=== PATIENT | female | born 1990 | race Hispanic/Latino ===

== ENCOUNTER 2017-03-14 18:29 | Emergency (ER) | payer MEDICAID ==
[2017-03-14 18:42] VITALS: BP 145/89; PULSE 115; RESP 18; TEMP 98.6; O2SAT 98
--- NOTE | 2017-03-14 18:52 | ED PDOC ---
HPI: CCC, URI, Sore Throat Chief Complaint (Nursing): ENT Problem Chief Complaint (Provider): ENT Problem History Per: Patient History/Exam Limitations: no limitations Have you had recent travel within the past 21 days to any of the following countries: [place], [place], [place] or [place]?: No Onset/Duration Of Symptoms: Other (x 1 and 1/2 week) Current Symptoms Are (Timing): Still Present Additional Complaint(s): Iliana is a 26 year old female who presents to the Emergency Department complaining of left ear pain that started suddenly after coughing. Patient states she had nasal congestion and cough for 1 and 1/2 weeks. Denies fever, chills and vomiting. PMD: No Family Provider Past Medical History Reviewed: Historical Data, Nursing Documentation, Vital Signs Vital Signs: Last Vital Signs Temp 98.6 F 03/14/17 18:38 Pulse 115 H 03/14/17 18:38 Resp 18 03/14/17 18:38 BP 145/89 03/14/17 18:38 Pulse Ox 98 03/14/17 19:03 - Surgical History Surgical History: No Surg Hx - Family History Family History: States: No Known Family Hx - Social History Current smoker - smoking cessation education provided: No Alcohol: None Drugs: Denies - Home Medications Home Medications: Ambulatory Orders Medication Instructions Recorded Albuterol 0.083% [Albuterol 0.083% 2.5 mg IH Q8 PRN #100 neb 03/14/17 Inhal Ginny (2.5 mg/3 ml) UD] Amoxicillin 500 mg PO TID #21 tablet 03/14/17 Naproxen 1 tab PO Q12 PRN #14 tab 03/14/17 predniSONE [Prednisone] 2 tab PO DAILY #10 tab 03/14/17 - Allergies Allergies/Adverse Reactions: Allergies Allergy/AdvReac Type Severity Reaction Status Date / Time No Known Allergies Allergy Verified 03/14/17 18:41 Review of Systems ROS Statement: Except As Marked, All Systems Reviewed And Found Negative Constitutional: Negative for: Fever, Chills ENT: Positive for: Ear Pain (Left ), Nose Congestion Respiratory: Positive for: Cough Gastrointestinal: Negative for: Vomiting Physical Exam - Reviewed Nursing Documentation Reviewed: Yes Vital Signs Reviewed: Yes - Physical Exam Appears: Positive for: Well, Non-toxic Head Exam: Positive for: ATRAUMATIC, NORMAL INSPECTION, NORMOCEPHALIC Skin: Positive for: Normal Color Eye Exam: Positive for: Normal appearance ENT: Positive for: TM Is/Are (Left erythematous TM), Nasal Congestion (Mild) Neck: Positive for: Normal Respiratory: Positive for: Wheezing (MILD), Other (Throat within Normal) Neurologic/Psych: Positive for: Alert, Oriented - ECG O2 Sat by Pulse Oximetry: 98 (RA) Pulse Ox Interpretation: Normal Medical Decision Making Medical Decision Making: Time: 18:51 Upon provider evaluation patient is medically stable, and requires no further treatment in the ED at this time. Patient will be discharged with Rx for Albuterol, Amoxicillin, Naproxen, and Prednisone. Counseling was provided and all questions were answered regarding diagnosis and need for follow up with PCP. There is agreement to discharge plan. Return if symptoms persist or worsen. Scribe Attestation: Documented by Pio Diane, acting as a scribe for Sunday Gonzales PA-C Provider Scribe Attestation: All medical record entries made by the Scribe were at my direction and personally dictated by me. I have reviewed the chart and agree that the record accurately reflects my personal performance of the history, physical exam, medical decision making, and the department course for this patient. I have also personally directed, reviewed, and agree with the discharge instructions and disposition. Disposition - Clinical Impression Clinical Impression: Acute ear infection, Reactive airway disease - Patient ED Disposition Is Patient to be Admitted: No - Disposition Referrals: [facility] [Outside] Disposition: Routine/Home Disposition Time: 18:51 Condition: FAIR Prescriptions: Albuterol 0.083% [Albuterol 0.083% Inhal Ginny (2.5 mg/3 ml) UD] 2.5 mg IH Q8 PRN #100 neb PRN Reason: Cough Amoxicillin 500 mg PO TID #21 tablet Naproxen 1 tab PO Q12 PRN #14 tab PRN Reason: Pain, Moderate (4-7) predniSONE [Prednisone] 2 tab PO DAILY #10 tab Instructions: Otitis Media (ED), Reactive Airways Disease (DC) Forms: [facility] (Armenian), [facility] ED School/Work Excuse
== END 2017-03-14 19:00 | disposition short-term general hospital (02) ==
LOC: H.ER 18:29
DX: J45.909 Unspecified asthma, uncomplicated (principal); H66.92 Otitis media, unspecified, left ear

== ENCOUNTER 2017-09-28 19:21 | Emergency (ER) | payer MEDICAID ==
[2017-09-28] MEDS ORDERED: Lactated Ringer's 1,000 ML IV STA ×2 (20:06→20:07)
--- NOTE | 2017-09-28 20:42 | ED PDOC ---
HPI:Nausea, Vomiting, Diarrhea Time Seen by Provider: 09/28/17 19:51 Chief Complaint (Nursing): Female Genitourinary Chief Complaint (Provider): VOmiting History Per: Patient History/Exam Limitations: no limitations Onset/Duration Of Symptoms: Days Current Symptoms Are (Timing): Still Present Have you had recent travel within the past 21 days to any of the following countries: [place], [place], [place] or [place]?: No Associated Symptoms: Nausea, Vomiting. denies: Fever, Chills, Diarrhea, Back Pain, Urinary Symptoms Additional History Per: Patient Additional Complaint(s): 27yo female, with EGA of 5 weeks, presents to ED with persistent nausea and vomiting for the past 1 week. Patient states she has a history of hyperemesis gravidarum and severe iron deficiency, making her high risk. She reports over the past 24 hours, she has vomited 10-20 times. She also reports decreased urine output. Patient denies any diarrhea, vaginal bleeding, weakness , fever or chills. No other complaints. Abnormal Vaginal Bleeding: No : 3 Para: 1 Past Medical History Reviewed: Historical Data, Nursing Documentation, Vital Signs Vital Signs: Last Vital Signs Temp 97.7 F 09/28/17 19:37 Pulse 105 H 09/28/17 19:37 Resp 16 09/28/17 19:37 BP 130/83 09/28/17 19:37 Pulse Ox 99 09/28/17 19:37 - Medical History PMH: No Chronic Diseases - Surgical History Surgical History: No Surg Hx - Family History Family History: States: No Known Family Hx - Home Medications Home Medications: Ambulatory Orders Medication Instructions Recorded Albuterol 0.083% [Albuterol 0.083% 2.5 mg IH Q8 PRN #100 neb 03/14/17 Inhal Ginny (2.5 mg/3 ml) UD] Amoxicillin 500 mg PO TID #21 tablet 03/14/17 Naproxen 1 tab PO Q12 PRN #14 tab 03/14/17 predniSONE [Prednisone] 2 tab PO DAILY #10 tab 03/14/17 Doxylamine/Pyridoxine HCl (B6) 1 - 2 each PO HS #16 tablet. 09/28/17 [Sol Wagner 10-10 mg Tablet] - Allergies Allergies/Adverse Reactions: Allergies Allergy/AdvReac Type Severity Reaction Status Date / Time No Known Allergies Allergy Verified 03/14/17 18:41 Review of Systems ROS Statement: Except As Marked, All Systems Reviewed And Found Negative Constitutional: Negative for: Fever, Chills, Weakness Gastrointestinal: Positive for: Nausea, Vomiting. Negative for: Abdominal Pain , Diarrhea Physical Exam - Reviewed Nursing Documentation Reviewed: Yes Vital Signs Reviewed: Yes - Physical Exam Appears: Positive for: Non-toxic, Uncomfortable Head Exam: Positive for: ATRAUMATIC, NORMAL INSPECTION, NORMOCEPHALIC Skin: Positive for: Normal Color, Warm Eye Exam: Positive for: Normal appearance ENT: Positive for: Other (tacky mucus membranes) Neck: Positive for: Supple Cardiovascular/Chest: Positive for: Regular Rate, Rhythm, Tachycardia Respiratory: Positive for: Normal Breath Sounds Gastrointestinal/Abdominal: Positive for: Normal Exam, Soft. Negative for: Tenderness, Mass, Guarding, Rebound Back: Positive for: Normal Inspection. Negative for: L CVA Tenderness, R CVA Tenderness Extremity: Positive for: Normal ROM. Negative for: Pedal Edema, Deformity, Swelling Neurologic/Psych: Positive for: Alert, Oriented. Negative for: Motor/Sensory Deficits - Laboratory Results Result Diagrams: 09/28/17 21:00 09/28/17 21:00 - ECG O2 Sat by Pulse Oximetry: 99 (RA) Pulse Ox Interpretation: Normal Medical Decision Making Medical Decision Making: Impression: 27yo female wt hyperemesis gravidarum, clinical dehydration Plan: -- Labs -- Urinalysis -- US OB Transvaginal -- IV Lactated ringer's -- Reglan 10 mg IV Progress: 2233 US OB Transvaginal FINDINGS: Uterus: Measures 8.2 x 4.5 x 4.9 cm. Single intrauterine gestation identified. pole and yolk sac are seen. Estimated gestational age is 6 weeks, 2 days. Estimated delivery date is 05/22/2018. Note that the anatomy, amniotic fluid volume, and placental position cannot be evaluated at this early gestational age. heart motion visualized, at 129 beats per minute. Cervix appears closed. Right ovary: Within normal limits in appearance. Measures 2.1 x 1.0 x 1.3 cm. Flow seen in the right ovary on Doppler imaging, with no evidence of torsion. Left ovary: Contains a small 1.3 x 1.0 cm complex cystic lesion. This lesion has a thick wall and a crenulated appearance. It most likely represents a corpus luteal cyst, given its appearance. Otherwise unremarkable in appearance. Measures 3.2 x 2.8 x 2.3 cm. Flow seen in the left ovary on color and Doppler imaging, with no evidence of torsion. Free fluid: None seen. IMPRESSION: 6 week, 2 day intrauterine with heart motion. No acute abnormality identified. 2300 Labs reviewed with no acute findings. Patient reports feeling much better. Stable for discharge home. Patient instructed to stay well hydrated and to follow up with PMD in 2-3 days. Return precautions given. Scribe attestation: Documented by Michaelle Chris acting as a scribe for Geronimo Escalanet MD. Provider attestation: All medical record entries made by the Scribe were at my direction and personally dictated by me. I have reviewed the chart and agree that the record accurately reflects my personal performance of the history, physical exam, medical decision making, and the department course for this patient. I have also personally directed, reviewed, and agree with the discharge instructions and disposition. Disposition - Clinical Impression Clinical Impression: Hyperemesis gravidarum - Disposition [facility] Disposition: Routine/Home Disposition Time: 23:00 Condition: STABLE Prescriptions: Doxylamine/Pyridoxine HCl (B6) [Sol Wagner 10-10 mg Tablet] 1 - 2 each PO HS # 16 tablet. Instructions: Hyperemesis Gravidarum Forms: [employer] (Mongolian)
[2017-09-28 21:18] LABS: BASO % 0.3 % (0.0-2.0); EOS # 0.1 K/uL (0.0-0.7); EOS % 0.8 % (0.0-4.0); HEMOGLOBIN 13.7 g/dL (12.0-16.0); LYMPH # 1.9 K/uL (1.0-4.3); LYMPH % 27.7 % (20.0-40.0); MEAN CELL VOLUME 91.7 fl (81.0-99.0); MEAN CORPUSCULAR HEMOGLOBIN 30.8 pg (27.0-31.0); MEAN CORPUSCULAR HGB CONC 33.6 g/dL (33.0-37.0); MEAN PLATELET VOLUME 8.6 fl (7.2-11.7); MONO # 0.8 K/uL (0.0-0.8); MONO % 11.9 % (0.0-10.0); NEUT # 4.1 K/uL (1.8-7.0); NEUT % 59.3 % (50.0-75.0); NRBC % 0.3 % (0.0-0.0); RBC 4.46 Mil/uL (3.80-5.20); RED CELL DISTRIBUTION WIDTH 13.1 % (11.5-14.5); WHITE BLOOD COUNT 6.9 K/uL (4.8-10.8)
[2017-09-28 21:21] LABS: ALB/GLOB RATIO 0.8 (1.0-2.1); ALBUMIN 4.2 g/dL (3.5-5.0); ALT/SGPT 32 U/L (9-52); AST/SGOT 33 U/L (14-36); BLOOD UREA NITROGEN 9 mg/dl (7-17); CALCIUM 9.4 mg/dL (8.4-10.2); GFR AFRICAN-AMERICAN > 60; GFR NON-AFRICAN AMERICAN > 60
[2017-09-28 21:55] LABS: SQUAMOUS EPITHIAL 14 /hpf (0-5); URINE BILIRUBIN NEGATIVE (NEGATIVE); URINE BLOOD NEGATIVE (NEGATIVE); URINE CLARITY CLOUDY (Clear); URINE COLOR AMBER (YELLOW); URINE GLUCOSE (UA) NEG (Normal); URINE LEUKOCYTE ESTERASE MOD Leu/uL (Negative); URINE PROTEIN 30 mg/dL (NEGATIVE)
--- NOTE | 2017-09-28 22:34 | US ---
EXAM: US , Transvaginal EXAM DATE/TIME: 09/28/2017 8:19 PM CLINICAL HISTORY: 27 years old, female; Signs and symptoms; Lmp or gestational age (in weeks): 08/21/17; Antepartum complications; Other: Vomitting; ; Additional info: Abd pain in preg TECHNIQUE: Real-time transvaginal obstetrical ultrasound of the maternal pelvis and a first trimester with image documentation. Transvaginal imaging was used for better evaluation of the fetus and adnexa. COMPARISON: No relevant prior studies available. FINDINGS: Uterus: Measures 8.2 x 4.5 x 4.9 cm. Single intrauterine gestation identified. pole and yolk sac are seen. Estimated gestational age is 6 weeks, 2 days. Estimated delivery date is 05/22/2018. Note that the anatomy, amniotic fluid volume, and placental position cannot be evaluated at this early gestational age. heart motion visualized, at 129 beats per minute. Cervix appears closed. Right ovary: Within normal limits in appearance. Measures 2.1 x 1.0 x 1.3 cm. Flow seen in the right ovary on Doppler imaging, with no evidence of torsion. Left ovary: Contains a small 1.3 x 1.0 cm complex cystic lesion. This lesion has a thick wall and a crenulated appearance. It most likely represents a corpus luteal cyst, given its appearance. Otherwise unremarkable in appearance. Measures 3.2 x 2.8 x 2.3 cm. Flow seen in the left ovary on color and Doppler imaging, with no evidence of torsion. Free fluid: None seen. IMPRESSION: 6 week, 2 day intrauterine with heart motion. No acute abnormality identified. See above for remaining findings.
[2017-09-28 23:40] VITALS: BP 107/62; PULSE 94; RESP 19; TEMP 98.7; O2SAT 98
== END 2017-09-29 00:10 | disposition home or self-care (01) ==
LOC: H.ER 19:21
DX: O21.9 Vomiting of pregnancy, unspecified (principal); O26.891 Other specified pregnancy related conditions, first trimester; O34.80 Maternal care for other abnormalities of pelvic organs, unspecified trimester; Z3A.01 Less than 8 weeks gestation of pregnancy
CPT/HCPCS: 76817; 80053; 81003; 81025; 82948; 84702; 85025; 96360; 96361; 99283; J2765; J7120

== ENCOUNTER 2017-11-26 18:45 | Emergency (ER) | payer MEDICAID ==
[2017-11-26 18:51] VITALS: RESP 16; BMI 33.0
--- NOTE | 2017-11-26 20:14 | ED PDOC ---
HPI: Female Pain Time Seen by Provider: 11/26/17 19:21 Chief Complaint (Nursing): Female Genitourinary Chief Complaint (Provider): Vaginal spotting History Per: Patient History/Exam Limitations: no limitations Onset/Duration Of Symptoms: Days (1) Current Symptoms Are (Timing): Still Present Additional History Per: Patient Additional Complaint(s): 27yo female, and currently 15 weeks , comes to ER with complaints of vaginal spotting x 1 day. She also report a minimal abdominal cramping. She denies any vomiting, diarrhea, fever, chills, and offers no additional medical complaints. Abnormal Vaginal Bleeding: Yes : 3 Para: 1 Miscarriage: 1 Past Medical History Reviewed: Historical Data, Nursing Documentation, Vital Signs Vital Signs: Last Vital Signs Temp 97.6 F 11/26/17 18:50 Pulse 116 H 11/26/17 18:50 Resp 16 11/26/17 18:50 BP 126/74 11/26/17 18:50 Pulse Ox 99 11/26/17 18:50 - Medical History PMH: No Chronic Diseases - Surgical History Surgical History: No Surg Hx - Family History Family History: States: No Known Family Hx - Home Medications Home Medications: Ambulatory Orders Medication Instructions Recorded Albuterol 0.083% [Albuterol 0.083% 2.5 mg IH Q8 PRN #100 neb 03/14/17 Inhal Ginny (2.5 mg/3 ml) UD] Amoxicillin 500 mg PO TID #21 tablet 03/14/17 Naproxen 1 tab PO Q12 PRN #14 tab 03/14/17 predniSONE [Prednisone] 2 tab PO DAILY #10 tab 03/14/17 Doxylamine/Pyridoxine HCl (B6) 1 - 2 each PO HS #16 tablet. 09/28/17 [Sol Wagner 10-10 mg Tablet] Miconazole Nitrate [Monistat 3] 1 each VG DAILY #1 kit 11/26/17 - Allergies Allergies/Adverse Reactions: Allergies Allergy/AdvReac Type Severity Reaction Status Date / Time No Known Allergies Allergy Verified 11/26/17 18:52 Review of Systems ROS Statement: Except As Marked, All Systems Reviewed And Found Negative Constitutional: Negative for: Fever, Chills Cardiovascular: Negative for: Chest Pain Respiratory: Negative for: Shortness of Breath Gastrointestinal: Positive for: Abdominal Pain (cramping). Negative for: Nausea , Vomiting, Diarrhea Genitourinary Female: Positive for: Vaginal Bleeding Physical Exam - Reviewed Nursing Documentation Reviewed: Yes Vital Signs Reviewed: Yes - Physical Exam Appears: Positive for: Non-toxic, No Acute Distress Head Exam: Positive for: ATRAUMATIC, NORMAL INSPECTION, NORMOCEPHALIC Skin: Positive for: Normal Color Eye Exam: Positive for: Normal appearance Neck: Positive for: Supple Cardiovascular/Chest: Positive for: Regular Rate, Rhythm. Negative for: Murmur Respiratory: Positive for: Normal Breath Sounds. Negative for: Respiratory Distress Gastrointestinal/Abdominal: Positive for: Soft, Tenderness (minimal suprapuic tenderness), Other (gravid abdomen). Negative for: Guarding, Rebound Back: Positive for: Normal Inspection Extremity: Positive for: Normal ROM. Negative for: Pedal Edema Neurologic/Psych: Positive for: Alert, Oriented. Negative for: Motor/Sensory Deficits - Laboratory Results Result Diagrams: 11/26/17 20:11 11/26/17 20:11 - ECG O2 Sat by Pulse Oximetry: 99 (RA) Pulse Ox Interpretation: Normal Medical Decision Making Medical Decision Making: Impression: Threatened in 2nd trimester Plan: -- Labs -- UA -- US OB Accession No. : [id number] Patient Name / ID : ELISA MUNOZ / [id number] Exam Date : 11/26/2017 20:11:09 ( Approved ) Study Comment : Sex / Age : F / 27Y Creator : Jose Fraire MD Dictator : Jose Fraire MD Ethics Manager : Appellate Law Clerk : Jose Fraire MD Approver2 : Report Date : 11/27/2017 10:28:48 My Comment : Date of service: 11/26/2017 PROCEDURE: Second trimester ultrasound HISTORY: Vag spotting COMPARISON: 09/28/2017. TECHNIQUE: Standard protocol for this study/examination. FINDINGS: Reach presentation. Anterior Placenta. No evidence of abruption or previa Gestational age derived from LMP 13 weeks 6 days. JAMILA 05/28/2018. Gestational age derived from the following biometric parameters 14 weeks 5 days. JAMILA 05/22/2018 Biparietal diameter 2.65 cm Head circumference 10.11 cm Abdominal circumference 7.51 cm Femur length 1.88 cm Estimated weight 106.5 g Calculated cardiac rate 162 beats per min. Closed cervix measuring 5.61 cm Adnexa: Not visible IMPRESSION: Fourteen weeks 5 days live intrauterine gestation. Gestational concordance documented. Adequate interval progression compared to the prior study. Scribe Attestation: Documented by Michaelle Chris, acting as a scribe for Hansa Parsons MD. Provider Scribe Attestation: All medical record entries made by the Scribe were at my direction and personally dictated by me. I have reviewed the chart and agree that the record accurately reflects my personal performance of the history, physical exam, medical decision making, and the department course for this patient. I have also personally directed, reviewed, and agree with the discharge instructions and disposition. Disposition - Clinical Impression Clinical Impression: Threatened in second trimester, Yeast vaginitis - Disposition Disposition: Routine/Home Disposition Time: 21:41 Condition: STABLE Additional Instructions: FOLLOW-UP WITH OB WITHIN 2 DAYS FOR REEVALUATION. Prescriptions: Miconazole Nitrate [Monistat 3] 1 each VG DAILY #1 kit Instructions: Vulvovaginal Yeast Infection, Threatened Miscarriage Forms: [facility] (Honduran)
[2017-11-26 20:17] LABS: BASO % 0.4 % (0.0-2.0); EOS # 0.1 K/uL (0.0-0.7); HEMOGLOBIN 12.5 g/dL (12.0-16.0); LYMPH # 2.1 K/uL (1.0-4.3); LYMPH % 33.6 % (20.0-40.0); MEAN CELL VOLUME 91.3 fl (81.0-99.0); MEAN CORPUSCULAR HEMOGLOBIN 31.6 pg (27.0-31.0); MEAN CORPUSCULAR HGB CONC 34.6 g/dL (33.0-37.0); MEAN PLATELET VOLUME 8.3 fl (7.2-11.7); MONO # 0.6 K/uL (0.0-0.8); MONO % 10.1 % (0.0-10.0); NEUT # 3.4 K/uL (1.8-7.0); NEUT % 53.9 % (50.0-75.0); RBC 3.94 Mil/uL (3.80-5.20); WHITE BLOOD COUNT 6.3 K/uL (4.8-10.8)
[2017-11-26 20:32] LABS: ALB/GLOB RATIO 0.8 (1.0-2.1); ALBUMIN 3.6 g/dL (3.5-5.0); ALT/SGPT 17 U/L (9-52); AST/SGOT 20 U/L (14-36); BLOOD UREA NITROGEN 8 mg/dl (7-17); CALCIUM 9.3 mg/dL (8.4-10.2); GFR AFRICAN-AMERICAN > 60; GFR NON-AFRICAN AMERICAN > 60
[2017-11-26 20:54] LABS: SQUAMOUS EPITHIAL 4 /hpf (0-5); URINE BACTERIA RARE (<OCC); URINE BILIRUBIN NEGATIVE (NEGATIVE); URINE BLOOD NEGATIVE (NEGATIVE); URINE CLARITY SLIGHTY-CLOUDY (Clear); URINE COLOR YELLOW (YELLOW); URINE GLUCOSE (UA) NEG (Normal); URINE LEUKOCYTE ESTERASE LARGE Leu/uL (Negative); URINE PROTEIN NEGATIVE (NEGATIVE); URINE UROBILINOGEN 0.2-1.0 mg/dL (0.2-1.0)
[2017-11-26 21:51] VITALS: BP 124/74; PULSE 93; TEMP 98
--- NOTE | 2017-11-27 10:30 | US ---
Date of service: 11/26/2017 PROCEDURE: Second trimester ultrasound HISTORY: Vag spotting COMPARISON: 09/28/2017. TECHNIQUE: Standard protocol for this study/examination. FINDINGS: Reach presentation. Anterior Placenta. No evidence of abruption or previa Gestational age derived from LMP 13 weeks 6 days. JAMILA 05/28/2018. Gestational age derived from the following biometric parameters 14 weeks 5 days. JAMILA 05/22/2018 Biparietal diameter 2.65 cm Head circumference 10.11 cm Abdominal circumference 7.51 cm Femur length 1.88 cm Estimated weight 106.5 g Calculated cardiac rate 162 beats per min. Closed cervix measuring 5.61 cm Adnexa: Not visible IMPRESSION: Fourteen weeks 5 days live intrauterine gestation. Gestational concordance documented. Adequate interval progression compared to the prior study. Concordant results (preliminary interpretation) provided by [facility]. Procedure Completed: 20:18 Preliminary ([facility]) Report: Dictated and Authenticated: 21:15. Final Interpretation: 10:23. November 27, 2017.
[2017-11-29 12:43] VITALS: O2SAT 99
== END 2017-11-26 21:50 | disposition home or self-care (01) ==
LOC: H.ER 18:45
DX: O20.0 Threatened abortion (principal); Z3A.15 15 weeks gestation of pregnancy; O98.812 Other maternal infectious and parasitic diseases complicating pregnancy, second trimester

== ENCOUNTER 2018-01-06 18:48 | Emergency (ER) | payer MEDICAID ==
[2018-01-07 01:18] VITALS: BP 119/77; PULSE 98; RESP 18; TEMP 98.4; O2SAT 99
== END 2018-01-06 20:50 | disposition home or self-care (01) ==
LOC: H.EROB2 18:48 → H.L&D 19:07 → H.EROB2 20:50
DX: O26.852 Spotting complicating pregnancy, second trimester (principal); O43.92 Unspecified placental disorder, second trimester; Z3A.20 20 weeks gestation of pregnancy

== ENCOUNTER 2018-01-06 20:59 | Emergency (ER) | payer MEDICAID ==
[2018-01-06 21:00] VITALS: BMI 33.0
[2018-01-06 21:08] VITALS: BP 115/72; PULSE 104; RESP 20; TEMP 98.6; O2SAT 98
--- NOTE | 2018-01-06 21:48 | ED PDOC ---
Lower Extremity Pain/Injury Time Seen by Provider: 01/06/18 21:41 Chief Complaint (Nursing): Lower Extremity Problem/Injury Chief Complaint (Provider): left 5th digit injury History Per: Patient History/Exam Limitations: no limitations Onset/Duration Of Symptoms: Hrs (prior to arrival) Current Symptoms Are (Timing): Still Present Additional Complaint(s): Iliana Purdy is a 27 year old female, with no significant past medical history, who presents to the emergency department stating she tripped and sustained an injury to left 5th digit while chasing her toddler son prior to arrival. Patient has been ambulating with mild pain. Patient is but reports only twisting her toe, she did not fall and denies any abdominal pain. No other injuries or medical complaints. PMD: Kiya Davis Past Medical History Reviewed: Historical Data, Nursing Documentation, Vital Signs Vital Signs: Last Vital Signs Temp 98.6 F 01/06/18 21:05 Pulse 104 H 01/06/18 21:05 Resp 20 01/06/18 21:05 BP 115/72 01/06/18 21:05 Pulse Ox 98 01/06/18 21:05 - Medical History PMH: No Chronic Diseases - Surgical History Surgical History: No Surg Hx - Family History Family History: States: Unknown Family Hx - Home Medications Home Medications: Ambulatory Orders Medication Instructions Recorded Albuterol 0.083% [Albuterol 0.083% 2.5 mg IH Q8 PRN #100 neb 03/14/17 Inhal Ginny (2.5 mg/3 ml) UD] Amoxicillin 500 mg PO TID #21 tablet 03/14/17 Naproxen 1 tab PO Q12 PRN #14 tab 03/14/17 predniSONE [Prednisone] 2 tab PO DAILY #10 tab 03/14/17 Doxylamine/Pyridoxine HCl (B6) 1 - 2 each PO HS #16 tablet. 09/28/17 [Sol Wagner 10-10 mg Tablet] Miconazole Nitrate [Monistat 3] 1 each VG DAILY #1 kit 11/26/17 - Allergies Allergies/Adverse Reactions: Allergies Allergy/AdvReac Type Severity Reaction Status Date / Time No Known Allergies Allergy Verified 01/06/18 19:38 Review of Systems ROS Statement: Except As Marked, All Systems Reviewed And Found Negative Gastrointestinal: Negative for: Abdominal Pain Musculoskeletal: Positive for: Foot Pain (left 5th digit) Physical Exam - Reviewed Nursing Documentation Reviewed: Yes Vital Signs Reviewed: Yes - Physical Exam Appears: Positive for: No Acute Distress Head Exam: Positive for: ATRAUMATIC, NORMOCEPHALIC Skin: Positive for: Normal Color, Warm, Dry Eye Exam: Positive for: Normal appearance Neck: Positive for: Painless ROM Extremity: Positive for: Normal ROM (lower extremities), Tenderness (swelling, tenderness and ecchymosis to 5th digit.), Swelling. Negative for: Deformity Neurologic/Psych: Positive for: Alert, Oriented, Gait (steady) - ECG O2 Sat by Pulse Oximetry: 98 (RA) Pulse Ox Interpretation: Normal Medical Decision Making Medical Decision Making: Time: 21:41 Initial impression: Toe injury Initial Plan: --Tylenol 325 mg tab 650 mg PO --Foot left 5th digit (Toe) [RAD] Foot xray: nondisplaced fx. distal aspect of prox phalanx; as read by me. Treatment: Toes ryanne taped together, pt. placed in cast shoe, ambulating with little difficulty. advised rest, ice, elevate and tylenol as needed for pain. podiatry follow up given. Scribe Attestation: Documented by George Keenan, acting as a scribe for Ligia Alvarez PA-C Provider Scribe Attestation: All medical record entries made by the Scribe were at my direction and personally dictated by me. I have reviewed the chart and agree that the record accurately reflects my personal performance of the history, physical exam, medical decision making, and the department course for this patient. I have also personally directed, reviewed, and agree with the discharge instructions and disposition. Disposition - Clinical Impression Clinical Impression: Toe fracture, left - Patient ED Disposition Is Patient to be Admitted: No Doctor Will See Patient In The: Office Counseled Patient/Family Regarding: Studies Performed, Diagnosis - Disposition Referrals: Rafael Luther DPM [[facility]] - Disposition: Routine/Home Disposition Time: 22:35 Condition: IMPROVED Instructions: Toe Fracture (DC) Forms: [employer] (Maldivian)
--- NOTE | 2018-01-07 09:40 | RAD ---
Date of service: 01/06/2018 PROCEDURE: Left foot attention 5th digit HISTORY: toe injury COMPARISON: Not available TECHNIQUE: Three views of left 5th digit FINDINGS: No evidence of fracture. The joint spaces and articular surfaces are preserved. The remaining visualized osseous structures of the left foot are unremarkable. IMPRESSION: No evidence of fracture.
== END 2018-01-06 23:28 | disposition home or self-care (01) ==
LOC: H.ER 20:59
DX: S92.351A Displaced fracture of fifth metatarsal bone, right foot, initial encounter for closed fracture (principal); W22.8XXA Striking against or struck by other objects, initial encounter; Y92.89 Other specified places as the place of occurrence of the external cause

== ENCOUNTER 2018-05-04 19:43 | Emergency (ER) | payer MEDICAID ==
--- NOTE | 2018-05-04 21:06 | OBHP ---
Datetime: 05/04/2018 20:38 IP Adm Impression: Term, intrauterine ; No Active Labor; Intact Membranes IP Admit Plan: Discharge home Admit Comment, IP Provider: 27 y/o , 37.4 wks with JAMILA of 05/21/18 based on LMP presents to [facility] with vaginal spotting that started 8:45 am today. Patient noticed blood clot streak while wiping wi th tissue paper after urination. Reports CTx every 2-4 mins for last 3-4 weeks. Endorses good m ovements. Denies any F/C/N/V/D. Last sexual intercourse 48 hours ago. Last US done on 04/29/18 was Vertex, 6 lb wt, No previa as per patient. Last visit with Dr. Childress 2 weeks ago. Next apt on 05/06/18. care: Dr. Sakshi childress, No records available PMHx: HIV PSHx: [place] tooth removal Allergies: NKDA Medication: Isentres/Truvada and PNVs. F/H : Niece w/ muscular distrophy. Social Hx: Denies ETOH/smoking/drugs, Spouse smoking VSS Physical exam GEN: NAD Chest: RRR, S1S2 present Lungs: CTAB Abdomen: gravid, NT, soft Ext: No pedal edema, calf tenderness SVE: Fingertip, Long, high, Browbnish discrage A/P: 27 y/o , 37.4 wks with JAMILA of 05/21/18 based on LMP presents with vaginal spotting - EFM and toco monitoring - NST reactive, + accesl, No decels, moderate variability - Occasional irregular CTx - Bedside US: Vertex presentation - SVE: Fingertip/long/high, No active VB, Brownish discharge - Patient to be discharged home and follow up with Dr. Childress on 05/06/18 for follow up - labor pecautions provided. Case discussed with Attending Dejuan Gonzales, PGY1 OB Hospitalist on-call. With PGY1, I saw and examined this patient. Agree with note. She is not in active labor. SVE FT/L/High - no VB noted - only some brown discharge...She does not have record s - [place] [facility] [place] [place]; pre[place] [facility] [place] May 06 as scheduled Pelvic Type - PN: Not Done Extremities - PN: Normal Abdomen - PN: Normal Back - PN: Normal Breast - PN: Not Done Lungs - PN: Normal Heart - PN: Normal Thyroid - PN: Not Done Neurologic - PN: Normal HEENT - PN: Normal General - PN: Normal Presentation-Admit: Vertex FHR - Baseline A Provider: 140 Membranes, Provider: Intact Contraction Comments Provider: occ Comments, ACOG Physical Exam: VSS Physical exam GEN: NAD Chest: RRR, S1S2 present Lungs: CTAB Abdomen: gravid, NT, soft Ext: No pedal edema, calf tenderness SVE: Fingertip, Long, high, Browbnish discrage Bedside US: Vertex Pool Provider: Negative EGA AdmitDate IP: 37.3 Vital Signs Provider: Reviewed; Within Normal Limits IP Chief Complaint: Uterine contractions; Vaginal bleeding NICHD Variability Prov Fetus A: Moderate 6-25bpm NICHD Accel Fetus A IP Provider: [id number] FHR Category Provider Fetus A: Category I NICHD Decel Fetus A IP Provider: None Dilatation, Provider: fingertip Effacement, Provider: Long Station, Provider: High Genitourinary Exam: Normal DTRs - PN: Not Done
--- NOTE | 2018-05-04 21:06 | OBDCSUM ---
Datetime: 05/04/2018 20:43 Discharged to, Provider: Home Follow up at, Provider: Dr. Reddy Disch Instr Activity: Normal activity Disch Instr Diet: Regular Discharge Diagnosis, Provider: Joya Labor - Undelivered Discharge Time: 05/04/2018 20:43 Follow up in weeks, Provider: May 06, 2018 @ 0900 am as scheduled Disch Referrals: None
[2018-05-05 01:42] VITALS: BP 112/75; PULSE 103; O2SAT 99
== END 2018-05-04 20:55 | disposition home or self-care (01) ==
LOC: H.EROB2 19:43
DX: O26.853 Spotting complicating pregnancy, third trimester (principal); O26.93 Pregnancy related conditions, unspecified, third trimester; R10.2 Pelvic and perineal pain; Z3A.37 37 weeks gestation of pregnancy